=== PATIENT | male | born 1985 | race Caucasian/White ===

== ENCOUNTER 2020-05-16 10:22 | Inpatient (IN) | payer SELFPAY ==
[~2020-05-16] VITALS: Ht 167.6 cm; Wt 63.5 kg
[2020-05-16] VITALS (8 sets, daily range): BP systolic 118–132; BP diastolic 71–85; PULSE 65–96; TEMP 98.5–99.9
[2020-05-16 11:20] LABS: HEMATOCRIT 42.9 % (42.0-52.0); HEMOGLOBIN 14.7 g/dl (13.5-18.0); MEAN CELL VOLUME 92 fl (80.0-100.0); MEAN CORPUSCULAR HEMOGLOBIN 31 pg (27.0-31.0); MEAN CORPUSCULAR HGB CONC 34 g/dl (33.0-37.0); MEAN PLATELET VOLUME 10.7 fl (7.4-10.4); PLATELET COUNT 105 K/mm3 (130-400); RED BLOOD COUNT 4.69 M/mm3 (4.20-5.60); REDCELL DISTRIBUTION WIDTH-CV 11.9 % (11.5-14.5)
[2020-05-16 11:30] LABS: ALANINE AMINOTRANSFERASE 40 U/L (4-49); ALBUMIN 4.3 gm/dL (3.5-5.0); ALKALINE PHOSPHATASE < 20 U/L (50-136); ANION GAP 9 mmol/L (7-16); AST,SGOT 43 U/L (15-37); BLOOD UREA NITROGEN 16 mg/dL (9-20); CALCIUM 9.1 mg/dL (8.4-10.2); CARBON DIOXIDE 28 mmol/L (22-30); CHLORIDE 96 mmol/L (98-107); CREATININE, serum 1.14 (0.66-1.25); GLUCOSE 158 mg/dL (74-106); POTASSIUM 3.7 mmol/L (3.4-5.0); SODIUM 133 mmol/L (137-145); TOTAL PROTEIN 7.6 gm/dL (6.4-8.2)
[2020-05-16 11:43] LABS: C-REACTIVE PROTEIN 24.3 mg/dL (0.0-0.9)
[2020-05-16 11:46] LABS: BAND 24 % (0-10); LYMPHOCYTE 2 % (20.0-51.0); NEUTROPHILS 71 % (42.0-75.2); PLATELET ESTIMATE DECREASED (NORMAL)
[2020-05-16 13:43] LABS: COLLECTION METHOD CLEAN CATCH
[2020-05-16 14:08] LABS: PH 5 (5-8); SQUAMOUS EPITHELIAL 0-2 /hpf; URINE APPEARANCE Clear; URINE BACTERIA None Seen /hpf; URINE BILIRUBIN Negative (NEGATIVE); URINE BLOOD Negative (NEGATIVE); URINE COLOR Yellow; URINE GLUCOSE Negative (NEGATIVE); URINE KETONE Trace (NEGATIVE); URINE LEUKOCYTE ESTERASE Negative (NEGATIVE); URINE NITRATE Negative (NEGATIVE); URINE PROTEIN(semi-quant) 1+ (NEGATIVE); URINE RBC 0-2 /hpf; URINE UROBILINOGEN Negative (NEGATIVE)
--- NOTE | 2020-05-16 15:45 | NUR ---
Patient arrived to room 347 from PACU around this time, he is drowy but alert/oriented, denies pain and Vital signs are stable, will continue to monitor
--- NOTE | 2020-05-16 18:45 | NUR ---
Patient continues to do well post op, vital signs stable, pain controlled, tolerating CL diet, IVF and abx infusing, up to the bathroom with stand by assist
--- NOTE | 2020-05-16 18:46 | NUR ---
report given to maintenance supervisor 2nd shift nurse CHINO Feldman
[2020-05-17 00:37] VITALS: BP 102/71; PULSE 54; TEMP 98.2
--- NOTE | 2020-05-17 01:08 | NUR ---
RESTING QUIETLY. NORCO FOR PAIN TO ABDOMEN. NO c/o N/V. 3 LAP SITES WELL APPROXIMATED.
[2020-05-17 02:58] VITALS: BP 106/71; PULSE 50; TEMP 98.3
[2020-05-17 07:32] LABS: MEAN CELL VOLUME 94 fl (80.0-100.0); MEAN CORPUSCULAR HGB CONC 34 g/dl (33.0-37.0); MEAN PLATELET VOLUME 11.2 fl (7.4-10.4); PLATELET COUNT 98 K/mm3 (130-400); RED BLOOD COUNT 3.92 M/mm3 (4.20-5.60); REDCELL DISTRIBUTION WIDTH-CV 12.4 % (11.5-14.5)
[2020-05-17 07:34] LABS: HEMATOCRIT 36.8 % (42.0-52.0); HEMOGLOBIN 12.4 g/dl (13.5-18.0); MEAN CORPUSCULAR HEMOGLOBIN 32 pg (27.0-31.0)
[2020-05-17 07:44] LABS: CREATININE, serum 0.93 (0.66-1.25); POTASSIUM 4.7 mmol/L (3.4-5.0)
[2020-05-17 07:54] VITALS: BP 113/70; PULSE 58; TEMP 97.8
[2020-05-17 11:11] VITALS: BP 110/73; PULSE 61; TEMP 98.2
--- NOTE | 2020-05-17 11:28 | NUR ---
Top Distribution Executive met with the patient to complete initial intake. The patient lives in [place] with a roommate. The patient denies DME use and is independent with ADLs. The patient does not have a PCP but was agreeable to setting a follow up appointment at [facility]. The patient receives medications from [facility] pharmacy. The patient does not have advanced directives in the EMR as not interested in DPOA-HC form. The patient does not have any children. He states his father would be a medical decision maker, if needed. Drew Del Angel #[phone]. His mother's name is Lucy. She recently had a stroke and Drew is her caregiver. GA contacted [facility] and set up an appointment for , 05/27 at 11:00. Arrive at 10:45. GA collaborated the above information with the patient's nurse.
--- NOTE | 2020-05-17 12:22 | NUR ---
First visit from the sewer bricklayer. No needs right now.
--- NOTE | 2020-05-17 12:41 | NUR ---
Patient alert and oriented, answers questions appropriately. See assessment. Abdomen soft, non tender, non distended. Bowel sounds active x4 quads. +Flatus. Lap sites with abdomen with edges well approximated, no redness or drainage noted. Post op exercises reviewed with patient. No c/o at this time.
[2020-05-17 16:56] VITALS: BP 116/77; PULSE 53; TEMP 98.3
--- NOTE | 2020-05-17 20:30 | NUR ---
Pt. sitting up in bed at this time. Pt. is A&OX3, assessment complete. INT to rt. ac patent. Pt. denies pain. Abd. Lap sites x3, well approximated. Pt. denies further needs, call light within reach.
[2020-05-17 23:40] VITALS: BP 114/71; PULSE 49; TEMP 97.6
[2020-05-18] MEDS ORDERED: AMOXICILLIN 8751 TAB PO (08:38)
[2020-05-18] MEDS ORDERED: ULTRAM 50MG TAB50 MG PO (08:39)
[2020-05-18 09:17] VITALS: BP 108/64; PULSE 67; TEMP 98.1
--- NOTE | 2020-05-18 10:34 | NUR ---
Patient alert and oriented, answers questions appropriately. See assessment. Abdomen soft, non tender, non distended. Bowel sounds active x4 quads. +Flatus. +Bowel movement. Lap sites to abdomen with edges well approximated, no redness or drainage noted. Post op exercises reviewed with patient. No c/o at this time.
--- NOTE | 2020-05-18 11:48 | NUR ---
Discharge instructions reviewed with patient, verbalized understanding. Discharged ambulatory to auto/home with friend at 1140.
== END 2020-05-18 11:40 | disposition home or self-care (01) | DRG 340 ==
LOC: COL.ER 10:22 → EDBD 10:24 → SURG 13:12
PROVIDERS: Physician Assistant; ADMIT Surgery
PROC: 0DTJ4ZZ Resection of Appendix, Percutaneous Endoscopic Approach (ICD-10-PCS; principal; 2020-05-16 14:30)
DX: K35.33 Acute appendicitis with perforation, localized peritonitis, and gangrene, with abscess (principal); Z20.828 Contact with and (suspected) exposure to other viral communicable diseases; F17.200 Nicotine dependence, unspecified, uncomplicated
CPT/HCPCS: A9284; C9113; J0330; J1100; J1170; J1885; J2250; J2270; J2405; J2543; J2704; J3010; J7030; J7120; Q9967